=== PATIENT | male | born 1940 | race Caucasian/White ===

== ENCOUNTER → 2022-02-09 04:44 | Outpatient (CLI) | payer MEDICARE, MEDICAID, SELFPAY ==
[2022-02-09 05:07] LABS: Coronavirus 19, PCR Not Detected (NotDetected); Influenza A, PCR Not Detected (NotDetected); Influenza B, PCR Not Detected (NotDetected); MANUAL DIFFERENTIAL MANUAL DIFFERENTIAL (MANUAL DIFF)
[2022-02-09 05:31] LABS: Basophils % 0.4 % (0.1-2.0); Eosinophils # 0.3 K/mm3 (0.0-0.4); Eosinophils % 3.9 % (0.1-12.0); Hematocrit 44.9 % (42.0-52.0); Hemoglobin 15.1 g/dL (14.1-18.0); Lymphocytes # 1.5 K/mm3 (0.7-4.5); Lymphocytes % 20.6 % (10-50); Mean Corpuscular HGB Conc 33.6 g/dL (31.8-35.4); Mean Corpuscular Hemoglobin 31.1 pg (27.0-31.2); Mean Corpuscular Volume 92.6 fl (80-94); Mean Platelet Volume 8.7 fl (7.4-10.4); Monocytes # 0.6 K/mm3 (0.1-1.0); Monocytes % 8.1 % (1.7-9.3); Neutrophils # 4.9 K/mm3 (1.8-7.8); Platelet Count 139 K/mm3 (142-424); Red Blood Count 4.85 M/mm3 (4.60-6.20); Red Cell Distribution Width 13.3 % (11.5-17.5); White Blood Count 7.4 K/mm3 (4.8-10.8)
[2022-02-09 05:35] LABS: Chloride 104 mmol/L (98-107); Potassium 3.9 mmoL/L (3.5-5.1); Sodium 136 mmol/L (136-145)
[2022-02-09 05:38] LABS: Anion Gap 7.9 mEq/L (5-15); Blood Urea Nitrogen 14 mg/dl (9-20); Carbon Dioxide 28 mmol/L (22.0-30.0); Estimated Glomerular Filt Rate 93 ml/min (>60); GFR (African American) 113 ML/MIN (>60); Glucose 100 mg/dl (74-100)
[2022-02-09 06:01] LABS: Eosinophils % 3 % (0-3); Lymphocytes % 28 % (10-50); Neutrophils % 69 % (42-76); Platelet Estimate Normal; RBC Morphology Normal; Total Cells Counted 100
== END ==
PROVIDERS: PCP Family Medicine; Visit Provider Urology
DX: N47.1 Phimosis (principal); Z01.818 Encounter for other preprocedural examination; Z20.822 Contact with and (suspected) exposure to COVID-19
CPT/HCPCS: 36415; 80048; 85007; 85014; 85018; 85048; 85049; C9803; U0003; U0005

== ENCOUNTER 2022-02-09 06:03 | Day surgery (SDC) | payer MEDICARE, MEDICAID, SELFPAY ==
[2022-02-07 10:25] VITALS: BMI 29.0
[2022-02-09 06:26] VITALS: BP 160/73; PULSE 61; RESP 18; TEMP 36.2; O2SAT 98
[2022-02-09 06:55] LABS: POC Glucose,Bedside 87 (70-110)
--- NOTE | 2022-02-09 08:20 | HMH.ANESCL ---
[facility] Anesthesia Checklist - Structural Data Admitted From: Home Planned Operative Procedure/s: circumcision Consent for Planned Operative Procedure(s) Verified: Yes - Additional verifications Anesthesia Reactions: No Hx Blood Transfusions: No Blood Transfusion Reaction: No - Airway Assessment C-Spine Mobility Assessed: Yes TMJ Mobility Assessed: Yes Dentition: Dentures-good fit - Neurological Assessment Level of Consciousness: Awake, Alert, Appropriate - Anesthesia Plan Anesthesia Risk discussed: Yes Anesthesia Plan: Verified ASA Class: III Anesthesia Type: MAC [facility] History I have reviewed the patient's past medical history: Yes Medical History: Reports:: Aneurysm, Atrial Fibrillation, BPH, Diabetes Mellitus Type 2, Hyperlipidemia, Hypertension, Myocardial Infarction Denies:: Cancer, Diabetes Mellitus Type 1, Internal Pacemaker, MRSA, Seizures *Have you ever received a pneumonia vaccine?: No *Have you received a flu vaccine this season?: No Other Medical History: Denies: Blood Transfusion Reaction Anesthesia experience/problems:: none Other Surgeries: Yes: Cardiac Catheterization, Coronary Stent, Other (stent for AAA). No: Pacemaker Amputation: No Fractures: No - *Social History Last grade of school completed: High school graduate Smoking Status: Current every day smoker Tobacco Type: cigarettes # Packs/Day (cigarettes): 1 Alcohol Intake: never Substance Use Type: denies use *Occupational Status:: retired Housing: house *Travel in the last 8 weeks: None Family Hx:: Diabetes
[2022-02-09 08:40] VITALS: BP 116/55; PULSE 71; RESP 16; TEMP 36.2; O2SAT 93
[2022-02-09 08:55] VITALS: BP 150/80; PULSE 65; RESP 18; TEMP 36.2; O2SAT 96
[2022-02-09 09:10] VITALS: BP 184/95; PULSE 68; RESP 18; TEMP 36.2; O2SAT 96
[2022-02-09 09:25] VITALS: BP 166/84; PULSE 58; RESP 18; TEMP 36.2; O2SAT 96
[2022-02-09 09:55] VITALS: BP 171/98; PULSE 57; RESP 18; TEMP 36.2; O2SAT 96
--- NOTE | 2022-02-09 15:12 | HMH.OPNOTE ---
Date of procedure: 02/09/22 Pre-op Diagnosis:: Phimosis Post-op Diagnosis:: Phimosis and glanular adhesions Procedure performed:: Dorsal slit procedure with takedown of glanular adhesions Surgeon:: Andrea Wynn MD Anesthesia: MAC, local Estimated blood loss (mL): 0 Clinical Note:: 81-year-old white male with a penile phimosis presents for urologic management. Patient states he had prior circumcision 15 years ago but now the foreskin over the meatus has close down once again. We discussed that circumcision would not be able to be performed again but dorsal slit procedure would accomplish our goals. Operative findings:: Patient noted to have glanular adhesions from the chronic inflammation due to the phimosis. After the dorsal slit was performed and we were able to expose the penis the adhesions were taken down bluntly and sharply. There was a good cosmetic result afterwards. Operative note:: Patient taken to the operating suite after informed consent was obtained. He was placed on the operating room table in the supine position and monitored anesthesia care was administered. Sequential compression devices were placed and IV antibiotics administered. He was prepped draped in the standard surgical fashion. 30 cc of local anesthetic were placed as a ring block around the base of the penis. A straight clamp was then placed onto the foreskin dorsally for 30 seconds. Clamp was removed and the skin incised back to the de león.. Hemostasis achieved of the tissues and a 3-0 chromic was used in a running locked fashion on each side of the dorsal slit. There were adhesions to the underside of the skin to the glans and dorsally they were taken down sharply and we were then able to bring the glans up through the defect. There were glanular adhesions that were taken down bluntly. Hemostasis was achieved. Antibiotic ointment was placed in the clean dressing was placed lightly around the penis. Patient tolerated procedure well. Condition: stable Disposition: same day Specimens:: None Complications:: None
== END 2022-02-09 09:55 | disposition home or self-care (01) ==
LOC: OR 06:05
PROVIDERS: PCP Family Medicine; Visit Provider Urology
DX: N47.1 Phimosis (principal); N47.5 Adhesions of prepuce and glans penis; Z72.0 Tobacco use; I48.91 Unspecified atrial fibrillation; E78.5 Hyperlipidemia, unspecified; I10 Essential (primary) hypertension; I25.2 Old myocardial infarction; N40.0 Benign prostatic hyperplasia without lower urinary tract symptoms; E11.9 Type 2 diabetes mellitus without complications; Z79.84 Long term (current) use of oral hypoglycemic drugs; Z79.899 Other long term (current) drug therapy
CPT/HCPCS: 54001; 36415; 80048; 82962; 85007; 85014; 85018; 85048; 85049; 96374; C9803; J2704; U0003; U0005